=== PATIENT | female | born 1980 ===

== ENCOUNTER 2018-03-24 20:46 | Emergency (ER) | payer SELFPAY ==
--- NOTE | 2018-03-24 23:12 | ED PDOC ---
HPI: Abdomen Time Seen by Provider: 03/24/18 22:41 Chief Complaint (Nursing): Abdominal Pain Chief Complaint (Provider): Abdominal Pain History Per: Patient History/Exam Limitations: no limitations Onset/Duration Of Symptoms: Days (x14) Current Symptoms Are (Timing): Still Present Location Of Pain/Discomfort: RLQ Associated Symptoms: Back Pain. denies: Urinary Symptoms Additional Complaint(s): 38 y/o female with a PMHx of HTN and diabetes presents to the ED with complaints of constant abdominal pain associated with right flank pain and right leg pain, onset two weeks ago. Patient reports of taking advil with no relief. Denies vomiting, diarrhea, urinary symptoms, and fever. PMD: None Provided Past Medical History Reviewed: Historical Data, Nursing Documentation, Vital Signs Vital Signs: Last Vital Signs Temp 96.6 F L 03/24/18 21:02 Pulse 75 03/24/18 21:02 Resp 20 03/24/18 21:02 BP 112/75 03/24/18 21:02 Pulse Ox 100 03/25/18 00:48 - Medical History PMH: Diabetes, HTN, Hypercholesterolemia - Surgical History Surgical History: No Surg Hx - Family History Family History: States: Unknown Family Hx - Home Medications Home Medications: Ambulatory Orders Medication Instructions Recorded Naproxen 500 mg PO BID #20 tab 03/25/18 - Allergies Allergies/Adverse Reactions: Allergies Allergy/AdvReac Type Severity Reaction Status Date / Time amoxicillin Allergy RASH Verified 03/24/18 21:02 Penicillins Allergy RASH Verified 03/24/18 21:02 tetracycline Allergy RASH Verified 03/24/18 21:02 Review of Systems ROS Statement: Except As Marked, All Systems Reviewed And Found Negative Constitutional: Negative for: Fever Gastrointestinal: Positive for: Abdominal Pain (right lower quadrant). Negative for: Vomiting, Diarrhea Genitourinary Female: Negative for: Dysuria, Frequency, Hematuria Musculoskeletal: Positive for: Back Pain (right flank ), Leg Pain (right) Physical Exam - Reviewed Nursing Documentation Reviewed: Yes Vital Signs Reviewed: Yes - Physical Exam Appears: Positive for: No Acute Distress, Uncomfortable Head Exam: Positive for: ATRAUMATIC, NORMOCEPHALIC Skin: Positive for: Normal Color, Warm, Dry Eye Exam: Positive for: Normal appearance, EOMI, PERRL ENT: Positive for: Normal ENT Inspection Neck: Positive for: Normal Cardiovascular/Chest: Positive for: Regular Rate, Rhythm. Negative for: Murmur Respiratory: Positive for: Normal Breath Sounds. Negative for: Respiratory Distress Gastrointestinal/Abdominal: Positive for: Normal Exam, Soft, Tenderness ( tenderness to right lower quadrant) Back: Positive for: Normal Inspection. Negative for: L CVA Tenderness, R CVA Tenderness, Vertebral Tenderness Extremity: Positive for: Normal ROM. Negative for: Pedal Edema, Deformity Neurologic/Psych: Positive for: Alert, Oriented (x3). Negative for: Motor/ Sensory Deficits - Laboratory Results Result Diagrams: 03/24/18 23:20 03/24/18 23:20 - ECG O2 Sat by Pulse Oximetry: 100 (RA) Pulse Ox Interpretation: Normal - Progress Re-evaluation Time: 01:47 Condition: Re-examined, Improved Medical Decision Making Medical Decision Making: Time: 2307 Impression: abdominal pain, right flank pain, right leg pain Differentials include but not limited to acute appendicitis, musculoskeletal pain, renal colic, nephritis, lumbar radiculopathy, UTI, sciatica Plan: -- CT abd & pelvis IV Contrast -- CMP -- Lipase -- ED Urine -- ED Dipstick -- CBC with differentials -- Toradol 30 mg IVP Time: 0043 CT ABD/PELVIS RESULTS FINDINGS: Lung bases: Unremarkable. No mass. No consolidation. ABDOMEN: Liver: Probable hepatic steatosis versus bolus timing. Gallbladder and bile ducts: Unremarkable. No calcified stones. No ductal dilation. Pancreas: Unremarkable. No ductal dilation. Spleen: Unremarkable. No splenomegaly. Adrenals: Unremarkable. No mass. Kidneys and ureters: Unremarkable. No solid mass. No hydronephrosis. Stomach and bowel: Scattered diverticulosis of the colon. No evidence of diverticulitis. Stool is present throughout the colon and rectum, correlate with history of constipation. PELVIS: Appendix: No findings to suggest acute appendicitis. Bladder: Unremarkable. Reproductive: Unremarkable as visualized. ABDOMEN and PELVIS: Intraperitoneal space: Unremarkable. No free air. No significant fluid collection. Bones/joints: No acute fracture. No dislocation. Soft tissues: Small fat containing umbilical hernia. Vasculature: Unremarkable. No abdominal aortic aneurysm. Lymph nodes: Unremarkable. No enlarged lymph nodes. IMPRESSION: Scattered diverticulosis of the colon. No evidence of diverticulitis. No imaging features to suggest acute appendicitis at this time. Thank you for allowing us to participate in the care of your patient. Dictated and Authenticated by: Natalie Tobin MD 03/25/2018 12:43 AM Eastern Time ([place] & [place]) Scribe Attestation: Documented by Neda Talley acting as a scribe for Lashonda Moore MD. Provider Scribe Attestation: All medical record entries made by the Scribe were at my direction and personally dictated by me. I have reviewed the chart and agree that the record accurately reflects my personal performance of the history, physical exam, medical decision making, and the department course for this patient. I have also personally directed, reviewed, and agree with the discharge instructions and disposition. Disposition - Clinical Impression Clinical Impression: Abdominal pain, Leg pain - Patient ED Disposition Is Patient to be Admitted: No Doctor Will See Patient In The: Office Counseled Patient/Family Regarding: Studies Performed, Diagnosis, Need For Followup - Disposition Disposition: Routine/Home Disposition Time: 01:49 Condition: GOOD Additional Instructions: Take your medications as instructed. Follow up with your PCP in 2-3 days. Prescriptions: Naproxen 500 mg PO BID #20 tab Instructions: Acute Abdomen (Belly Pain), Adult (DC), Radiculopathy Print Language: YEMENI
[2018-03-24 23:27] LABS: BASO # 0.1 K/uL (0.0-0.2); BASO % 0.5 % (0.0-2.0); EOS # 0.2 K/uL (0.0-0.7); EOS % 1.9 % (0.0-4.0); HEMOGLOBIN 11.6 g/dL (12.0-16.0); LYMPH # 3.4 K/uL (1.0-4.3); LYMPH % 36.8 % (20.0-40.0); MEAN CORPUSCULAR HEMOGLOBIN 29.2 pg (27.0-31.0); MEAN CORPUSCULAR HGB CONC 34.3 g/dL (33.0-37.0); MONO # 0.5 K/uL (0.0-0.8); MONO % 5.9 % (0.0-10.0); NEUT # 5.1 K/uL (1.8-7.0); NEUT % 54.9 % (50.0-75.0); RBC 3.98 Mil/uL (3.80-5.20); RED CELL DISTRIBUTION WIDTH 13.5 % (11.5-14.5); WHITE BLOOD COUNT 9.2 K/uL (4.8-10.8)
[2018-03-24 23:35] LABS: ALB/GLOB RATIO 1.3 (1.0-2.1); ALBUMIN 4.1 g/dL (3.5-5.0); ALT/SGPT 25 U/L (9-52); AST/SGOT 19 U/L (14-36); BLOOD UREA NITROGEN 17 mg/dl (7-17); GFR AFRICAN-AMERICAN > 60; GFR NON-AFRICAN AMERICAN > 60; LIPASE 238 U/L (23-300)
[2018-03-25] MEDS ORDERED: Sodium Chloride 0.9% 50 ML IV ONE (00:08)
[2018-03-25] MEDS ORDERED: Iohexol 300 100 ML IJ ONE (00:08)
[2018-03-25 02:25] VITALS: BP 112/76; PULSE 68; RESP 18; TEMP 98.2; O2SAT 99
--- NOTE | 2018-03-25 10:19 | CT ---
PROCEDURE: CT Abdomen and Pelvis with contrast HISTORY: right flank pain RLQ pain COMPARISON: CT scan of the abdomen pelvis dated 09/04/2014. TECHNIQUE: Contrast dose: 95 mL Omnipaque 300 Radiation dose: Total exam DLP = 548.6 mGy-cm. This CT exam was performed using one or more of the following dose reduction techniques: Automated exposure control, adjustment of the mA and/or kV according to patient size, and/or use of iterative reconstruction technique. FINDINGS: LOWER THORAX: Unremarkable. LIVER: Hepatic steatosis. No gross lesion or ductal dilatation. GALLBLADDER AND BILE DUCTS: Unremarkable. PANCREAS: Unremarkable. No gross lesion or ductal dilatation. SPLEEN: Unremarkable. ADRENALS: Unremarkable. No mass. KIDNEYS AND URETERS: Unremarkable. No hydronephrosis. No solid mass. VASCULATURE: Unremarkable. No aortic aneurysm. BOWEL: Unremarkable. No obstruction. No gross mural thickening. APPENDIX: Normal appendix. PERITONEUM: Small fat containing umbilical hernia. Small fat containing right inguinal hernia. No free fluid. No free air. LYMPH NODES: Unremarkable. No enlarged lymph nodes. BLADDER: Unremarkable. REPRODUCTIVE: Unremarkable. BONES: No acute fracture. OTHER FINDINGS: None. IMPRESSION: No acute abdominal pelvic pathology.
== END 2018-03-25 02:25 | disposition home or self-care (01) ==
LOC: H.ER 20:46
DX: R10.31 Right lower quadrant pain (principal); M79.604 Pain in right leg; E11.9 Type 2 diabetes mellitus without complications; E78.00 Pure hypercholesterolemia, unspecified; I10 Essential (primary) hypertension
CPT/HCPCS: 74177; 80053; 81025; 83690; 85025; 96374; 99283; J1885; Q9967

== ENCOUNTER 2018-08-02 20:38 | Emergency (ER) | payer OTHER ==
--- NOTE | 2018-08-02 21:55 | ED PDOC ---
ATTENTION PHYSICIANS Hyperglycemia/Hypoglycemia <Lashonda Moore A - Last Filed: 08/03/18 00:22> Chief Complaint (Provider): High Blood Sugar History Per: Patient History/Exam Limitations: no limitations Onset/Duration Of Symptoms: Mins Current Symptoms Are (Timing): Still Present : The patient does not have any of the infectious symptoms listed except for those marked. Additional Complaint(s): 38 y/o female with no significant PMHx presents to the ED for evaluation of elevated glucose level. Patient reports of having a health assessment performed at [facility] and was found to have a elevated glucose level of 323 earlier today. Patient denies any complaints at this time. History was translated by son and . PMD: none <Haiyl Fournier F - Last Filed: 08/04/18 15:09> Time Seen by Provider: 08/02/18 21:38 Chief Complaint (Nursing): High Blood Sugar Past Medical History Vital Signs: Last Vital Signs Temp 98.6 F 08/02/18 21:19 Pulse 78 08/02/18 21:19 Resp 17 08/02/18 21:19 BP 122/76 08/02/18 21:19 Pulse Ox 100 08/02/18 22:54 <Lashonda Moore A - Last Filed: 08/03/18 00:22> Reviewed: Historical Data, Nursing Documentation, Vital Signs Vital Signs: Last Vital Signs Temp 98.6 F 08/02/18 21:19 Pulse 78 08/02/18 21:19 Resp 17 08/02/18 21:19 BP 122/76 08/02/18 21:19 Pulse Ox 100 08/02/18 21:19 - Medical History PMH: HTN, Hypercholesterolemia Denies: Chronic Kidney Disease - Surgical History Surgical History: No Surg Hx - Family History Family History: States: Unknown Family Hx <Haily Fournier F - Last Filed: 08/04/18 15:09> - Home Medications Home Medications: Ambulatory Orders Medication Instructions Recorded Naproxen 500 mg PO BID #20 tab 03/25/18 Non-Formulary 1 ea SC DAILY #1 ea 08/03/18 metFORMIN [glucOPHAGE] 500 mg PO BID #60 tab 08/03/18 - Allergies Allergies/Adverse Reactions: Allergies Allergy/AdvReac Type Severity Reaction Status Date / Time amoxicillin Allergy RASH Verified 03/24/18 21:02 Penicillins Allergy RASH Verified 03/24/18 21:02 tetracycline Allergy RASH Verified 03/24/18 21:02 Review of Systems ROS Statement: Except As Marked, All Systems Reviewed And Found Negative Constitutional: Positive for: Other (Elevated glucose level) <Haily Fournier - Last Filed: 08/04/18 15:09> Physical Exam - Reviewed Nursing Documentation Reviewed: Yes Vital Signs Reviewed: Yes - Physical Exam Appears: Positive for: No Acute Distress Head Exam: Positive for: ATRAUMATIC, NORMOCEPHALIC Skin: Positive for: Normal Color, Warm, Dry Eye Exam: Positive for: Normal appearance, EOMI, PERRL Neck: Positive for: Normal, Painless ROM Cardiovascular/Chest: Positive for: Regular Rate, Rhythm. Negative for: Murmur Respiratory: Positive for: Normal Breath Sounds. Negative for: Respiratory Distress Gastrointestinal/Abdominal: Positive for: Normal Exam, Soft. Negative for: Tenderness Back: Positive for: Normal Inspection. Negative for: L CVA Tenderness, R CVA Tenderness, Vertebral Tenderness Extremity: Positive for: Normal ROM. Negative for: Deformity Neurologic/Psych: Positive for: Alert, Oriented. Negative for: Motor/Sensory Deficits <Haily Fournier - Last Filed: 08/04/18 15:09> - Laboratory Results Result Diagrams: 08/02/18 22:14 08/02/18 22:14 <Lashonda Moore - Last Filed: 08/03/18 00:22> - Laboratory Results Result Diagrams: 08/02/18 22:14 08/02/18 22:14 - ECG Interpretation Of ECG: NSR @ 69, no ST-T changes. O2 Sat by Pulse Oximetry: 100 (RA) Pulse Ox Interpretation: Normal - Radiology X-Ray: Interpreted by Ms X-Ray Interpretation: No Acute Disease <Haily Fournier - Last Filed: 08/04/18 15:09> Medical Decision Making Medical Decision Making: Time: 2145 Impression: Elevated Glucose Plan: -- EKG -- CMP -- Magnesium -- Troponin I -- CBC with Differentials -- PTT -- Prothrombin Time -- CXR Two Views -- Sodium Chloride 0.9% 999 mls/hr -- IV Insertion -- Glucose, Blood, POC -- POC Urine Test -- Urinalysis Scribe Attestation: Documented by Neda Talley, acting as a scribe for Haily Fournier MD. Provider Scribe Attestation: All medical record entries made by the Scribe were at my direction and personally dictated by me. I have reviewed the chart and agree that the record accurately reflects my personal performance of the history, physical exam, medical decision making, and the department course for this patient. I have also personally directed, reviewed, and agree with the discharge instructions and disposition. <Haily Fournier F - Last Filed: 08/04/18 15:09> Disposition <Lashonda Moore - Last Filed: 08/03/18 00:22> - Disposition Disposition: Transfer of Care Disposition Time: 23:00 Patient Signed Over To: Lashonda Moore <Haily Fournier F - Last Filed: 08/04/18 15:09> - Clinical Impression Clinical Impression: Diabetic complication, Hyperglycemia - Disposition Referrals: [facility] [Outside] Condition: GOOD Additional Instructions: SMITH LOYA, thank you for letting us take care of you today. Your pr ovider was Lashonda Moore MD and you were treated for HIGH BLOOD SUGAR. The emergency medical care you received today was directed at your acute symptoms. If you were prescribed any medication, please fill it and take as directed. It may take several days for your symptoms to resolve. Return to the Emergency Department if your symptoms worsen, do not improve, or if you have any other problems. Please contact your doctor or call one of the physicians/clinics you have been referred to that are listed on the Patient Visit Information form that is included in your discharge packet. Bring any paperwork you were given at discharge with you along with any medications you are taking to your follow up visit. Our treatment cannot replace ongoing medical care by a primary care provider outside of the emergency department. Thank you for allowing the [facility] team to be part of your care today. If you had an X-Ray or CT scan: A Radiologist will review the ED reading if any change in treatment is needed we will contact you. If you had a blood, urine, or wound culture: It will take several days for the results, if any change in treatment is needed we will contact you. If you had an STI test: It will take 48 hours for the results. Please call after 1 week if you have not heard back. Prescriptions: metFORMIN [glucOPHAGE] 500 mg PO BID #60 tab Non-Formulary 1 ea SC DAILY #1 ea Instructions: Hyperglycemia, Adult, Diabetes Type 2 (DC) Forms: [employer] (Slovenian) Print Language: ARGENTINE
[2018-08-02] MEDS: Sodium Chloride 0.9% 1,000 ML IV SCH ×2 (22:03→23:53)
[2018-08-02 22:34] LABS: BASO # 0.1 K/uL (0.0-0.2); BASO % 0.8 % (0.0-2.0); EOS # 0.1 K/uL (0.0-0.7); EOS % 1.3 % (0.0-4.0); HEMOGLOBIN 12.4 g/dL (12.0-16.0); LYMPH # 2.9 K/uL (1.0-4.3); LYMPH % 39.4 % (20.0-40.0); MEAN CELL VOLUME 85.1 fl (81.0-99.0); MEAN CORPUSCULAR HEMOGLOBIN 28.5 pg (27.0-31.0); MEAN CORPUSCULAR HGB CONC 33.5 g/dL (33.0-37.0); MEAN PLATELET VOLUME 10.1 fl (7.2-11.7); MONO # 0.5 K/uL (0.0-0.8); MONO % 6.9 % (0.0-10.0); NEUT # 3.8 K/uL (1.8-7.0); NEUT % 51.6 % (50.0-75.0); NRBC % 0.1 % (0.0-0.0); PROTHROMBIN TIME 10.9 Seconds (9.8-13.1); RBC 4.36 Mil/uL (3.80-5.20); RED CELL DISTRIBUTION WIDTH 13.8 % (11.5-14.5); WHITE BLOOD COUNT 7.4 K/uL (4.8-10.8)
[2018-08-02 22:47] LABS: ALB/GLOB RATIO 1.2 (1.0-2.1); ALBUMIN 4.3 g/dL (3.5-5.0); ALT/SGPT 32 U/L (9-52); AST/SGOT 19 U/L (14-36); BLOOD UREA NITROGEN 13 mg/dl (7-17); CALCIUM 9.1 mg/dL (8.4-10.2); GFR NON-AFRICAN AMERICAN > 60
[2018-08-02] MEDS ORDERED: Sodium Chloride 0.9% 1,000 ML IV STA (22:50)
[2018-08-02 23:02] LABS: URINE BILIRUBIN NEGATIVE (NEGATIVE); URINE BLOOD SMALL (NEGATIVE); URINE CLARITY CLEAR (Clear); URINE COLOR COLORLESS (YELLOW); URINE GLUCOSE (UA) >=500 mg/dL (Normal); URINE LEUKOCYTE ESTERASE NEG Leu/uL (Negative); URINE PROTEIN NEGATIVE (NEGATIVE); URINE UROBILINOGEN 0.2-1.0 mg/dL (0.2-1.0)
--- NOTE | 2018-08-03 01:07 | ED PDOC ---
- Laboratory Results Result Diagrams: 08/02/18 22:14 08/02/18 22:14 - ECG O2 Sat by Pulse Oximetry: 100 (RA) Medical Decision Making Medical Decision Making: Time: 23:00 Patient care was transferred from Dr. Fournier to Dr. Moore pending repeat of accu-check and reevaluation. Scribe Attestation: Documented by Lopez Sinha, acting as a scribe for Lashonda Moore MD. Provider Scribe Attestation: All medical record entries made by the Scribe were at my direction and personally dictated by me. I have reviewed the chart and agree that the record accurately reflects my personal performance of the history, physical exam, medical decision making, and the department course for this patient. I have also personally directed, reviewed, and agree with the discharge instructions and disposition. Disposition Doctor Will See Patient In The: Office Counseled Patient/Family Regarding: Studies Performed, Diagnosis - Clinical Impression Clinical Impression: Diabetic complication, Hyperglycemia - POA Present On Arrival: None - Disposition Referrals: [facility] [Outside] Disposition: Routine/Home Disposition Time: 01:05 Condition: GOOD Additional Instructions: SMITH LOYA, thank you for letting us take care of you today. Your provider was Lashonda Moore MD and you were treated for HIGH BLOOD SUGAR. The emergency medical care you received today was directed at your acute symptoms. If you were prescribed any medication, please fill it and take as directed. It may take several days for your symptoms to resolve. Return to the Emergency Department if your symptoms worsen, do not improve, or if you have any other problems. Please contact your doctor or call one of the physicians/clinics you have been referred to that are listed on the Patient Visit Information form that is included in your discharge packet. Bring any paperwork you were given at discharge with you along with any medications you are taking to your follow up visit. Our treatment cannot replace ongoing medical care by a primary care provider outside of the emergency department. Thank you for allowing the [facility] team to be part of your care today. If you had an X-Ray or CT scan: A Radiologist will review the ED reading if any change in treatment is needed we will contact you. If you had a blood, urine, or wound culture: It will take several days for the results, if any change in treatment is needed we will contact you. If you had an STI test: It will take 48 hours for the results. Please call after 1 week if you have not heard back. Prescriptions: metFORMIN [glucOPHAGE] 500 mg PO BID #60 tab Instructions: Hyperglycemia, Adult, Diabetes Type 2 (DC) Forms: [employer] (Czech) Print Language: ALBANIAN
[2018-08-03 01:22] VITALS: BP 124/74; PULSE 68; RESP 18; TEMP 98.3
--- NOTE | 2018-08-03 06:57 | CARD ---
APPROVED REPORT Date of service: 08/02/2018 EKG Measurement Heart [id number] <Conclusion> Normal sinus rhythm Normal ECG
--- NOTE | 2018-08-03 09:00 | RAD ---
Date of service: 08/02/2018 HISTORY: Hyperglycemia COMPARISON: 03/11/2016. TECHNIQUE: Chest PA and lateral FINDINGS: LINES AND TUBES: None. LUNG AND PLEURA: The lungs are well inflated and clear. No pleural effusion or pneumothorax. HEART AND MEDIASTINUM: The heart is not enlarged. No aortic atherosclerotic calcification present. The hilar and mediastinal contours are within normal limits. SKELETAL STRUCTURES: The bony structures are within normal limits for the patient's age. VISUALIZED UPPER ABDOMEN: Normal. OTHER FINDINGS: None. IMPRESSION: No active pulmonary disease.
[2018-08-04 15:10] VITALS: O2SAT 100
== END 2018-08-03 01:45 | disposition home or self-care (01) ==
LOC: H.ER 20:38
DX: E11.65 Type 2 diabetes mellitus with hyperglycemia (principal); Z79.84 Long term (current) use of oral hypoglycemic drugs; E78.00 Pure hypercholesterolemia, unspecified; I10 Essential (primary) hypertension; Z88.0 Allergy status to penicillin
CPT/HCPCS: 71046; 80053; 81003; 81025; 82948; 83735; 84484; 85025; 85610; 85730; 93005; 96360; 99285; J7030

== ENCOUNTER 2018-11-02 19:21 | Emergency (ER) | payer SELFPAY ==
[2018-11-02 19:30] VITALS: TEMP 97.8; O2SAT 100
--- NOTE | 2018-11-02 20:19 | ED PDOC ---
HPI: Chest Pain Time Seen by Provider: 11/02/18 20:03 Chief Complaint (Nursing): Chest Pain Chief Complaint (Provider): chest pain History Per: Patient, Family (daughter; patient ok with daughter interpreting) History/Exam Limitations: no limitations Onset/Duration Of Symptoms: Days (1 week), Waxing/Waning Current Symptoms Are (Timing): Still Present Quality: Pressure, "Pain" Exacerbating Factors: Turning, Movement, Deep Breathing Additional Complaint(s): 38 y/o female presents for evaluation of intermittent left-sided chest pain x 1 week, worse today. Associated radiation of pain down to left arm and up left si de of neck to face. Denies fever, headache, dizziness, extremity numbness/weakness, shortness of breath, palpitations, leg pain/swelling. Past Medical History Reviewed: Historical Data, Nursing Documentation, Vital Signs Vital Signs: Last Vital Signs Temp 97.8 F 11/02/18 19:30 Pulse 87 11/02/18 19:30 Resp 16 11/02/18 19:30 BP 123/87 11/02/18 19:30 Pulse Ox 100 11/02/18 19:30 - Medical History PMH: Diabetes Denies: Chronic Kidney Disease - Surgical History Surgical History: No Surg Hx - Family History Family History: States: Unknown Family Hx - Social History Current smoker - smoking cessation education provided: No - Home Medications Home Medications: Ambulatory Orders Medication Instructions Recorded Naproxen 500 mg PO BID #20 tab 03/25/18 Non-Formulary 1 ea SC DAILY #1 ea 08/03/18 metFORMIN [glucOPHAGE] 500 mg PO BID #60 tab 08/03/18 Naproxen [Naprosyn] 500 mg PO Q12 PRN #14 tablet 11/02/18 - Allergies Allergies/Adverse Reactions: Allergies Allergy/AdvReac Type Severity Reaction Status Date / Time amoxicillin Allergy RASH Verified 03/24/18 21:02 Penicillins Allergy RASH Verified 03/24/18 21:02 tetracycline Allergy RASH Verified 03/24/18 21:02 ARACELY Risk Score for UA/NSTEMI - ARACELY Risk Score Age > 64: NO 3 or more CAD Risk Factors: NO Known CAD (Stenosis greater than 50%): NO Aspirin use in past 7 days: NO Severe Angina: NO EKG ST changes greater than 0.5mm: NO Positive Cardiac Marker: NO ARACELY Score: 0 Risk %: 5% Review of Systems ROS Statement: Except As Marked, All Systems Reviewed And Found Negative Cardiovascular: Positive for: Chest Pain Musculoskeletal: Positive for: Arm Pain Physical Exam - Reviewed Nursing Documentation Reviewed: Yes Vital Signs Reviewed: Yes - Physical Exam Appears: Positive for: Well, Non-toxic, Uncomfortable Head Exam: Positive for: ATRAUMATIC, NORMAL INSPECTION, NORMOCEPHALIC Skin: Positive for: Normal Color Eye Exam: Positive for: Normal appearance ENT: Positive for: Normal ENT Inspection Cardiovascular/Chest: Positive for: Regular Rate, Rhythm. Negative for: Chest Non Tender (tender to palpate left anterior chest wall. Pain left side of chest with abduction and internal rotation of left upper extremity) Respiratory: Positive for: Normal Breath Sounds Gastrointestinal/Abdominal: Positive for: Normal Exam Back: Positive for: Normal Inspection Extremity: Positive for: Normal ROM Neurologic/Psych: Positive for: Alert, Oriented (x3) - Laboratory Results Result Diagrams: 11/02/18 21:11 11/02/18 21:11 - ECG ECG: Positive for: Viewed By Me (reviewed by ED attending) ECG Rhythm: Positive for: Sinus Rhythm O2 Sat by Pulse Oximetry: 100 - Radiology X-Ray: Viewed By Me X-Ray Interpretation: No Acute Disease - Progress ED Course And Treament: -accucheck -cbc -cmp -troponin -ekg -cxr -classroom monitor -IV toradol On re-eval, patient states pain improved Repeat EKG NSR; no acute findings Patient educated on findings, discharged with rx Naproxen Advised follow up PMD within 2-3 days Return precautions given Disposition - Clinical Impression Clinical Impression: Atypical chest pain - Patient ED Disposition Is Patient to be Admitted: No Counseled Patient/Family Regarding: Studies Performed, Diagnosis, Need For Followup, Rx Given - Disposition Disposition: Routine/Home Disposition Time: 23:54 Condition: IMPROVED Prescriptions: Naproxen [Naprosyn] 500 mg PO Q12 PRN #14 tablet PRN Reason: Pain, Moderate (4-7) Instructions: Chest Pain Forms: [employer] (Yi) Print Language: LITHUANIAN
[2018-11-02 21:29] LABS: BASO # 0.1 K/uL (0.0-0.2); BASO % 0.6 % (0.0-2.0); EOS # 0.2 K/uL (0.0-0.7); HEMOGLOBIN 12.7 g/dL (12.0-16.0); LYMPH # 3.4 K/uL (1.0-4.3); MEAN CELL VOLUME 83.3 fl (81.0-99.0); MEAN CORPUSCULAR HEMOGLOBIN 28.1 pg (27.0-31.0); MEAN CORPUSCULAR HGB CONC 33.7 g/dL (33.0-37.0); MEAN PLATELET VOLUME 9.4 fl (7.2-11.7); MONO # 0.4 K/uL (0.0-0.8); MONO % 4.4 % (0.0-10.0); NEUT # 5.2 K/uL (1.8-7.0); NRBC % 0.1 % (0.0-0.0); RBC 4.54 Mil/uL (3.80-5.20); WHITE BLOOD COUNT 9.3 K/uL (4.8-10.8)
[2018-11-02 21:40] LABS: ALB/GLOB RATIO 1.2 (1.0-2.1); ALBUMIN 4.9 g/dL (3.5-5.0); ALT/SGPT 30 U/L (9-52); AST/SGOT 23 U/L (14-36); BLOOD UREA NITROGEN 9 mg/dl (7-17); CALCIUM 10.3 mg/dL (8.4-10.2); GFR NON-AFRICAN AMERICAN > 60
[2018-11-02 23:46] VITALS: BP 125/77; PULSE 73; RESP 17
--- NOTE | 2018-11-03 10:11 | CARD ---
APPROVED REPORT Date of service: 11/02/2018 EKG Measurement Heart [id number] <Conclusion> Normal sinus rhythm Normal ECG
--- NOTE | 2018-11-03 12:44 | RAD ---
Date of service: 11/02/2018 HISTORY: chest pain COMPARISON: 08/02/2018 TECHNIQUE: Chest PA and lateral FINDINGS: LUNGS: No active pulmonary disease. PLEURA: No significant pleural effusion identified. No pneumothorax apparent. CARDIOVASCULAR: No aortic atherosclerotic calcification present. Normal cardiac size. No pulmonary vascular congestion. OSSEOUS STRUCTURES: No significant abnormalities. VISUALIZED UPPER ABDOMEN: Normal. OTHER FINDINGS: None. IMPRESSION: No active disease. No significant interval change compared to the prior examination(s).
== END 2018-11-03 00:07 | disposition home or self-care (01) ==
LOC: H.ER 19:21
DX: R07.89 Other chest pain (principal)
CPT/HCPCS: 71046; 80053; 81025; 82948; 84484; 85025; 93005; 99284; J1885